=== PATIENT | male | born 1955 ===

== ENCOUNTER 2018-07-20 08:03 | Day surgery (SDC) | payer OTHER ==
--- NOTE | 2018-07-06 07:19 | HP ---
AMENDED REPORT NOW INCLUDES DESIGNATED COSIGNER - ESIGNED BEFORE ADJUSTMENTS CC: Dr. Delmar Coffey, [facility] * ADMISSION HISTORY AND PHYSICAL: DATE OF ADMISSION: 07/20/18 ATTENDING SURGEON: Dr. Delmar Bryant.* (DICTATED BY SIERRA SERRANO) CHIEF COMPLAINT: Bilateral inguinal hernias. HISTORY OF PRESENT ILLNESS: This is a 62-year-old generally healthy and active male, who first noted in October some mild discomfort and presence of a bulge in the left groin. 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 He has had some moderate discomfort occasionally requiring rest and/or manual reduction of the hernia, but nothing to suggest incarceration or strangulation. Symptoms are also worse after eating and/or related to intestinal gas. He has noted some mild bulging at the right groin, but no other symptoms on that side. He has not had any other significant GI or symptoms. He has had a small mass just above the umbilicus for a number of years, which has otherwise been asymptomatic. He was seen and examined by Dr. Bryant in the office on 06/01. Exam at that time showed left greater than right inguinal hernias, both reducible. In addition, there was a palpable supraumbilical mass possibly consistent with incarcerated fat, though a specific defect was not noted. It was not felt that this required any surgical intervention. Dr. Bryant has discussed with him the indications for surgery, the risks, benefits, and alternatives, and I have reviewed with him the expected perioperative course. He would like to proceed as scheduled with laparoscopic repair of bilateral inguinal hernias with mesh. PAST MEDICAL HISTORY: No significant past or active medical problems. 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 He is seen regularly by the nurse staff community health. His only other surgery is dental work. No problems reported. CURRENT MEDICATIONS: None. DRUG ALLERGIES: Possibly AMOXICILLIN (hives). FAMILY HISTORY: Negative for anesthesia problems, bleeding or clotting disorders. SOCIAL HISTORY: The patient is . He runs and owns a greenhouse. He is also an avid cyclist. He denies use of tobacco. He drinks on average less than 1 drink per day and denies any other recreational drug use. REVIEW OF SYSTEMS: General: No recent constitutional symptoms or acute illnesses other than described in the HPI. HEENT: No problems reported. Cardiovascular: No chest pain, palpitations, history of heart murmur, or hypertension. Respiratory: No history of asthma, chronic cough, or shortness of breath. GI: As above. No other acute problems noted. He did undergo colonoscopy around age 54, which was a normal study and with 10-year followup recommended. : No problems reported. Endocrine: No diabetes or thyroid dysfunction. Central Nervous System: He has had some episodes of vertigo, which typically are relieved by Jens maneuver and no current or recent symptoms. PHYSICAL EXAMINATION GENERAL: Well-nourished, well-developed male, in no acute distress. VITAL SIGNS: Height 5 feet 6 inches, weight 145 pounds. Temperature 97, blood pressure 122/74, pulse 60, respirations 16. HEENT: Pupils are equal, round, and reactive. EOMs intact. No conjunctival pallor. Oropharynx: Teeth in good repair. No intraoral lesions. NECK: No lymphadenopathy, thyromegaly, or masses. LUNGS: Clear to auscultation. No wheezes. HEART: Regular rate and rhythm. No murmur noted. ABDOMEN: There is the aforementioned palpable mass superior to the umbilicus, which is nontender and nonreducible. Abdomen is otherwise soft and nontender without palpable masses or organomegaly. The groins are noted per Dr. Bryant' exam for bilateral inguinal hernias, left greater than right, which are reducible. GENITALIA: Not examined. RECTAL: Not done. BACK: No spinous process or CVA tenderness. EXTREMITIES: No edema. NEUROLOGICAL: Grossly intact. SKIN: Warm and dry. No suspicious rashes or lesions noted. IMPRESSION: Bilateral inguinal hernias. PLAN: Laparoscopic repair of bilateral inguinal hernias with mesh. SIERRA SERRANO [id number]/[facility] #: [id number] MTDD
[2018-07-20] MEDS ORDERED: ceFAZolin 2 GM PREMIX in ORs 2 GM/50 ML BAG IVPB ONE (08:17)
[2018-07-20] MEDS ORDERED: Dexamethasone IV* 4 MG/ML 1 ML (4 MG) ONE (08:17)
[2018-07-20] MEDS ORDERED: Famotidine IV* 10 MG/ML 2 ML (20 mg) ONE (08:17)
[2018-07-20] MEDS ORDERED: Propofol* 10 MG/ML 20 ML BTL IV PUSH ONE (09:38)
[2018-07-20] MEDS ORDERED: Lidocaine 2% PF * 5 ML VIAL ONE (09:38)
[2018-07-20] MEDS ORDERED: Rocuronium* 10 MG/ML VIAL ONE (09:38)
[2018-07-20] MEDS ORDERED: fentaNYL* 50 MCG/ML 2 ML VIAL (100 MCG VIAL) ONE (09:38)
[2018-07-20] MEDS ORDERED: Midazolam* 1 MG/ML 2 ML VIAL (2 MG) ONE (09:38)
[2018-07-20] MEDS ORDERED: Bupivacaine 0.5% W/EPI SDV* 30 ML VIAL ONE (09:38)
[2018-07-20] MEDS ORDERED: Ketorolac INJ* 30 MG/ML 1 ML VIAL ONE (10:20)
[2018-07-20] MEDS ORDERED: oxyCODONE/Acetamin 5/325 MG* TAB PO PRN (10:32)
[2018-07-20] MEDS ORDERED: fentaNYL* 50 MCG/ML 2 ML VIAL (100 MCG VIAL) IV PRN (10:32)
[2018-07-20] MEDS ORDERED: HYDROcodone/ACETAMIN 5-325 MG* 1 TAB PO PRN (10:32)
[2018-07-20] MEDS ORDERED: DiMENhydriNATE IV* 50 MG/ML VIAL IV PUSH PRN (10:32)
[2018-07-20] MEDS ORDERED: Naloxone* 0.4 MG/ML 1 ML VIAL IV PRN (10:32)
[2018-07-20] MEDS ORDERED: Ondansetron INJ* 2 MG/ML VIAL ONE (10:49)
[2018-07-20] MEDS ORDERED: Neostigmine Methylsulfate* 1 MG/ML 10 ML VIAL (1 mg/ml) ONE (11:05)
[2018-07-20] MEDS ORDERED: Glycopyrrolate IV* 0.2 MG/ML 1 ML VIAL ONE (11:05)
--- NOTE | 2018-07-20 11:43 | OP ---
Operative Report - Blank - Operative Report Date of Operation: 07/20/18 Note: Brief Operative Note Preop Dx: Bilateral Inguinal Hernia Postop Dx: Same Procedure: Laparoscopic Repair Bilateral Inguinal Hernia with Mesh Anesthesia: GLENNY Surgeon: Annette Magneto Repairer: PA. Fidel Collier Fluids: 1000 ML LR EBL: None Specimen: None Drains: None Findings: dictated
[2018-07-20] MEDS ORDERED: Acetaminophen TAB* 325 MG ONE (12:19)
[2018-07-20 13:17] VITALS: BP 125/76
--- NOTE | 2018-07-21 11:13 | OP ---
CC: Delmar Coffey MD * DATE OF OPERATION: 07/20/18 - SDS DATE OF : 53 SURGEON: Delmar Bryant MD POWER HAMMER OPERATOR: SIERRA Loco ANESTHESIOLOGIST: Dr. Russo. ANESTHESIA: General endotracheal. PRE-OP DIAGNOSIS: Bilateral inguinal hernias. POST-OP DIAGNOSIS: Bilateral inguinal hernias. OPERATIVE PROCEDURE: Laparoscopic preperitoneal repair of bilateral inguinal hernias with mesh. ESTIMATED BLOOD LOSS: Minimal. IV FLUIDS: Crystalloid. SPECIMEN: None. DRAINS: None. COMPLICATIONS: None. COUNTS: Instrument, needle, and sponge counts were correct. DESCRIPTION OF PROCEDURE: The patient was brought to the operating room and placed on the table supine. Sequential compression devices were placed on both lower extremities. General anesthesia was administered. Breaux catheter was placed. He was positioned and padded appropriately. He received appropriate intravenous antibiotics and then he was prepped and draped in the usual sterile fashion. A time-out was performed. Local anesthetic was infiltrated into the skin and soft tissue prior to making each incision. The initial incision was a curvilinear infraumbilical incision and then subcutaneous tissues were divided with cautery. Anterior rectus fascia was identified to the right of midline and incised transversely. The underlying rectus muscle was retracted laterally and a preperitoneal balloon dilator was positioned down to the pubic symphysis. Laparoscope was introduced preperitoneal balloon was insufflated under direct visualization and removed and replaced with 12-mm blunt port. Carbon dioxide was insufflated to a pressure of 10 mmHg into the preperitoneal space. Under direct visualization, two 5 mm trocars were placed in the lower midline. The dissection proceeded from the midline laterally identifying the pubic symphysis, pubic tubercle, Arnol's ligament, and the inferior epigastric vessels on the right, which were maintained in the anterior position. The patient was noted to have indirect inguinal hernia on the right, which was able to be reduced and freed from the traumatic cord structures, which were preserved. The dissection proceeded laterally to the anterior superior iliac spine. Next, the dissection proceeded on the left side. On this side, again the dissection proceeded medially to lateral and the inferior epigastric vessels were in a normal position. There was a large indirect inguinal hernia noted, which was difficult to dissect out and during the dissection, the sac was opened. It was found that there was a sliding component of sigmoid colon involved with hernia. The sac was reduced ultimately bluntly and then peeled off the spermatic cord structures, which were preserved. The dissection proceeded laterally to the anterior superior iliac spine. The rent in the peritoneum was closed with endoscopic clip placement. Next, the repair of the hernia defects was performed with the Medtronic ProGrip laparoscopic mesh. Patches were cut from a 10 x 15 cm piece of mesh in order to cover the direct, indirect and femoral spaces. The mesh was positioned first on the left side and it was then furled with the coverage noted to the midline. The procedure was repeated on the right side again with similar result. The mesh did cross the midline. There were no fasting devices used. The space was desufflated under direct visualization ensuring that the mesh is lying in good position. At this point, the patient was noted to have pneumoperitoneum, so a entry into the peritoneal cavity was created through the infraumbilical incision, and using an open technique, the peritoneal cavity was accessed and the 12-mm trocar was positioned within it. Carbon dioxide was insufflated to a pressure of 10 mmHg. Peritoneoscopy was performed in the pelvis and there was noted to be full coverage of the mesh with no evidence of peritoneal defects. The carbon dioxide was released. The ports were removed. The infraumbilical site was closed with 0 Vicryl to approximate the rectus and the peritoneum in 2 layers using 0 Vicryl. Skin incisions were all closed with 4-0 Monocryl in subcuticular fashion. Steri- Strips were applied. The patient tolerated the procedure well and was extubated and transferred to the Recovery in stable condition. [id number]/[facility] #: [id number] MARY
== END 2018-07-20 14:09 | disposition home or self-care (01) ==
LOC: OR 08:03
PROVIDERS: ATTEND Surgery
DX: K40.20 Bilateral inguinal hernia, without obstruction or gangrene, not specified as recurrent (principal); Z85.820 Personal history of malignant melanoma of skin
CPT/HCPCS: A9270-GY; J0690; J1100; J1885; J2250; J2405; J2704; J2710; J3010